=== PATIENT | female | born 1980 | race Caucasian/White ===

== ENCOUNTER 2020-08-26 17:28 | Inpatient (IN) | payer OTHER ==
[~2020-08-26] VITALS: Ht 172.7 cm; Wt 80.7 kg
[2020-08-26] MEDS ORDERED: PRENATAL TABLE1 EAC1 PO (20:39)
[2020-08-26] MEDS ORDERED: PREDNISONE PO (20:42)
[2020-08-28] MEDS ORDERED: Procardia Xl 30MG TA PO (07:58)
[2020-08-28] MEDS ORDERED: CODE1TAB37 PO (07:58)
== END 2020-08-28 10:12 | disposition home or self-care (01) | DRG 833 ==
LOC: OB/GYN 17:28 → LDR 17:28 → OB/GYN 08-27 10:45 → EDBD 08-28 10:12
PROVIDERS: ADMIT Obstetrics & Gynecology Maternal & Fetal Medicine; ATTEND Obstetrics & Gynecology Maternal & Fetal Medicine
PROC: 4A1HXFZ Monitoring of Products of Conception, Cardiac Rhythm, External Approach (ICD-10-PCS; principal; 2020-08-26)
PROC: BY4CZZZ Ultrasonography of Second Trimester, Single Fetus (ICD-10-PCS; 2020-08-26)
DX: O60.02 Preterm labor without delivery, second trimester (principal); O34.12 Maternal care for benign tumor of corpus uteri, second trimester; D25.9 Leiomyoma of uterus, unspecified; Z3A.25 25 weeks gestation of pregnancy

== ENCOUNTER 2020-10-04 09:05 | Outpatient (CLI) | payer OTHER ==
[~2020-10-04 09:05] MED LIST: CODE1TAB37 PO; PREDNISONE PO; PRENATAL TABLE1 EAC1 PO; Procardia Xl 30MG TA PO
== END 2020-10-04 09:56 | disposition home or self-care (01) ==
LOC: EDBD 09:05 → NST 09:05
PROVIDERS: ATTEND Obstetrics & Gynecology Maternal & Fetal Medicine
DX: O26.873 Cervical shortening, third trimester (principal)

== ENCOUNTER 2020-11-22 09:00 | Inpatient (IN) | payer OTHER ==
[~2020-11-22] VITALS: Ht 172.7 cm; Wt 2.7 kg
[2020-11-23] MEDS ORDERED: XOPENEX0.63 MG/3 IH (07:06)
[2020-11-24] MEDS ORDERED: HYDROXYCHLOROQ200 MG (08:38)
[2020-11-24] MEDS ORDERED: NIFEDIPINE ER30 M1 (08:38)
[2020-11-24] MEDS ORDERED: INTEGRA PLUS C1 EACH (08:38)
[2020-11-24] MEDS ORDERED: PREDNISONE10 M2 (08:39)
[2020-11-24] MEDS ORDERED: RAYOS5 MG (08:39)
[2020-11-24] MEDS ORDERED: ESTRADIOL2 MG (08:39)
== END 2020-11-25 12:55 | disposition home or self-care (01) | DRG 788 ==
LOC: LDR 11-23 02:51 → OB/GYN 11-23 02:51
PROVIDERS: ADMIT Obstetrics & Gynecology Maternal & Fetal Medicine; ATTEND Obstetrics & Gynecology Maternal & Fetal Medicine
PROC: 4A1HXFZ Monitoring of Products of Conception, Cardiac Rhythm, External Approach (ICD-10-PCS; 2020-11-23)
PROC: 10D00Z1 Extraction of Products of Conception, Low, Open Approach (ICD-10-PCS; principal; 2020-11-23 09:15)
DX: O42.02 Full-term premature rupture of membranes, onset of labor within 24 hours of rupture (principal); O99.62 Diseases of the digestive system complicating childbirth; K60.3 Anal fistula; Z3A.38 38 weeks gestation of pregnancy; Z37.0 Single live birth